=== PATIENT | female | born 1980 | race Caucasian/White ===

== ENCOUNTER 2020-01-07 08:02 | Outpatient (CLI) | payer MEDICARE, OTHER ==
[2020-01-07 16:41] LABS: BHCG - Serum Negative (NEGATIVE); Pregs Control Background? CLEAR/WHITE (CLR/WHITE); Pregs Control Bar Appear? YES (CONTROL BAR)
[2020-01-07 20:19] LABS: SARS-CoV-2 MS2 Positive; SARS-CoV-2 N Gene Negative; SARS-CoV-2 S Gene Negative; SARS-CoV-2 orf1ab Negative
== END 2020-01-07 08:03 | disposition home or self-care (01) ==
LOC: LABBT 08:02
PROVIDERS: ATTEND Otolaryngology Plastic Surgery within the Head & Neck
DX: Z01.812 Encounter for preprocedural laboratory examination (principal); Z11.59 Encounter for screening for other viral diseases; J32.9 Chronic sinusitis, unspecified; J35.2 Hypertrophy of adenoids; J34.3 Hypertrophy of nasal turbinates; J34.2 Deviated nasal septum; J35.1 Hypertrophy of tonsils; R09.82 Postnasal drip; R05 Cough; R06.83 Snoring; G47.33 Obstructive sleep apnea (adult) (pediatric)
CPT/HCPCS: 84703; 85014; U0003; 87635

== ENCOUNTER 2020-01-09 06:03 | Day surgery (SDC) | payer MEDICARE ==
[2020-01-03 10:28] VITALS: BMI 35.5
[2020-01-09] MEDS ORDERED: AFRIN NASAL MIST 15 ML BOT ONE ×2 (06:18→06:40)
[2020-01-09] MEDS ORDERED: Bacitracin Zinc Ointment 30 gm TUBE ONE (06:40)
[2020-01-09] MEDS ORDERED: Ferric Subsulfate (ASTRINGYN) 8 ML VIAL ONE (06:40)
[2020-01-09] MEDS ORDERED: Lidocaine 1% w/Epinephrine 1:100K 20 ML VIAL ONE (06:40)
[2020-01-09] MEDS ORDERED: Fentanyl 250 MCG/5 ML VIAL ONE (06:50)
[2020-01-09] MEDS ORDERED: Acetaminophen 500 MG TAB ONE (06:55)
[2020-01-09] MEDS ORDERED: Midazolam HCl 2 mg/2 ml Vial ONE (06:56)
[2020-01-09] MEDS ORDERED: Lidocaine 4% Topical Sol 50 ML BOT ONE (07:01)
[2020-01-09] MEDS ORDERED: Fentanyl 100 MCG/2 ML VIAL ONE ×2 (08:50→09:21)
[2020-01-09] MEDS ORDERED: Labetalol HCl 100 MG/20 ML VIAL ONE (09:25)
[2020-01-09] MEDS ORDERED: Rocuronium Bromide 10 MG/ML (10ML VIAL) ONE (10:19)
[2020-01-09] MEDS ORDERED: Dexamethasone 20 MG/5 ML VIAL ONE (10:19)
[2020-01-09] MEDS ORDERED: PHENYLEPHRINE-NS 100 MCG/ML 10 ML SYRINGE ONE (10:19)
[2020-01-09] MEDS ORDERED: Succinylcholine Chloride 20 MG/ML 10 ml SYRINGE FS ONE (10:19)
[2020-01-09] MEDS ORDERED: Lidocaine 1% PF 5 ML VIAL ONE (10:19)
[2020-01-09] MEDS ORDERED: Ondansetron PF 4 MG/2 ML Vial ONE (10:19)
[2020-01-09] MEDS ORDERED: PROPOFOL 200 MG/20 ML VIAL ONE (10:19)
[2020-01-09] MEDS ORDERED: Hydrocodone-Acetamin 15 ML UDCUP ONE (10:23)
[2020-01-09] MEDS ORDERED: Morphine 2 MG/ML SYRINGE ONE (11:17)
--- NOTE | 2020-01-10 14:18 | OP ---
DATE OF PROCEDURE: 01/09/2020 PREOPERATIVE DIAGNOSES: 1. Chronic rhinosinusitis. 2. Bilateral inferior turbinate hypertrophy. 3. Nasal obstruction. 4. Chronic adenotonsillitis. 5. Adenotonsillar hypertrophy. 6. Obstructive sleep apnea. POSTOPERATIVE DIAGNOSES: 1. Chronic rhinosinusitis. 2. Bilateral inferior turbinate hypertrophy. 3. Nasal obstruction. 4. Chronic adenotonsillitis. 5. Adenotonsillar hypertrophy. 6. Obstructive sleep apnea. PROCEDURES PERFORMED: 1. Bilateral endoscopic sinus surgery, total ethmoidectomy with sphenoidotomies including removal of tissue. 2. Bilateral endoscopic sinus surgery, frontal sinus exploration. 3. Bilateral endoscopic sinus surgery, maxillary antrostomies. 4. Bilateral inferior turbinate submucosal resection. 5. Tonsillectomy and adenoidectomy. 6. LandmarX stereotactic image-guided sinus procedure. ESTIMATED BLOOD LOSS: 20 mL. COMPLICATIONS: None. ANESTHESIA: GETA. DESCRIPTION OF PROCEDURE: Following this, 1% lidocaine with 1:100,000 epinephrine were injected into the middle turbinates and lateral nasal wall bilaterally. Following this, the 0-degree endoscope was used to visualize the middle turbinate and the middle turbinate was medially fractured using a Redway elevator. Following this, the uncinate process was identified and was examined. The uncinate process was noted to be inflamed and laterally displaced bilaterally. Following this, a ball-ended probe was used to anteriorly fracture the uncinate process bilaterally. Following this, the 0-degree microdebrider and the up-biting Blakesley forceps were used to remove the uncinate process bilaterally. Following this, the natural maxillary sinus ostia was identified with the 0-degree endoscope and the ball-ended probe. The natural maxillary ostia was then widened using a 40-degree microdebrider and the straight Blakesley forceps bilaterally. Following this, the ethmoidal bulla was identified bilaterally. A 0-degree microdebrider was used to puncture the ethmoidal bulla on its medial and inferior aspect bilaterally. Following this, the 0-degree microdebrider and the up-biting Blakesley forceps were used to remove the ethmoidal bulla. Following this, the grand lamella was identified posterior to this area and was punctured using the 0-degree microdebrider bilaterally. Following this, the ethmoidal cells were opened from the posterior to the anterior using the 0-degree microdebrider, the 40-degree microdebrider and the up-biting Blakesley forceps bilaterally. Following this, the 45-degree endoscope and the 40-degree microdebrider blade were used to further remove the anterior ethmoidal cells to the level of the frontal sinus recess bilaterally. Following this, a 0-degree endoscope was advanced to the anterior wall of the sphenoid sinus through the previous ethmoidectomies and the Shepard tip suction was used to create a sphenoidotomy into the sphenoid sinuses bilaterally. Following this, the microdebrider was used to remove bone tissue and nasal polyps obstructing this posterior ethmoidal area and sphenoid sinus ostia area with the microdebrider. Following this, the microdebrider was used to widen the sphenoidotomy medially and inferiorly. Following this, 45-degree endoscope was used to visualize the anterior ethmoidal cells and a 40-degree microdebrider blade was used to further open the frontal sinus ostia and frontal sinus recess bilaterally. Following this, the inferior turbinates were punctured on the anterior-inferior aspect and submucosal resection was performed of the anterior and inferior aspect of the inferior turbinates bilaterally. Following this, inferior turbinates were laterally outfractured with a Redway elevator. Following this, nasal cavity was irrigated. NasoPore packing was placed within the middle meatus bilaterally. Prior to this sinus procedure, the [employer] image-guided system was setup, calibrated, and was noted to be within 1 mm of accuracy. All instruments used inside the nose were under stereotactic navigation guidance. General endotracheal anesthesia and intravenous access were obtained and we proceeded with positioning the patient for oropharyngeal surgery. Oropharyngeal exposure was obtained with a Kenyatta-Adolfo mouth gag after a head drape was placed and secured with a towel clip. The Kenyatta-Adolfo mouth gag was then suspended from the Castaneda tray and palatal elevation was achieved with a red rubber catheter. The right tonsil was addressed first. We used a curved Allis to grasp the tonsil and retract it medially as an anterior pillar incision was made. The retrotonsillar fascial plane was then established and blunt dissection was performed with the suction cautery. Blood vessels were anticipated, identified, and cauterized as they were encountered. Ultimately, dissection was carried to the posterior tonsillar pillar mucosa which was incised hemostatically, as well as the base of tongue connection. The tonsil was then passed off as a specimen and bleeding points within the tonsillar bed were cauterized under direct visualization. We subsequently turned our attention to the contralateral side, where using a similar technique, a near identical procedure was performed. Again, the tonsil was grasped and retracted medially with a curved Allis. The retrotonsillar fascial plane was established and while the anterior pillar was retracted medially. The hemostatic blunt dissection of the tonsil with a suction cautery was performed with blood vessels anticipated, identified, and cauterized as they were encountered. Again, dissection continued to the base of tongue and posterior tonsillar pillar mucosa which was incised in a hemostatic fashion. The tonsillar beds were then carefully inspected and bleeding points were identified and cauterized with a suction cautery. After this portion of the procedure, hemostasis was completely obtained. Under direct mirror visualization, we visualized the adenoid pad. Under direct mirror visualization, we removed the bulk of the adenoid tissue with the adenoid curette. We then packed the nasopharynx for an appropriate period of time with [id number] tonsillar sponges. After a period of observation, we removed the pack. Under indirect mirror visualization, we obtained hemostasis and vaporization of residual adenoid tissue with electrocautery. The patient's oral cavity was copiously irrigated with iced saline and subsequently suctioned. After completion of the procedure, the nasal cavity and oropharynx were irrigated and suctioned as were the gastric contents. Following this, the excessive portion of the uvula was excised with the Bovie electrocautery and the mucosal edges were reapproximated with 3-0 chromic gut stitch. The patient tolerated the procedure well. Job ID: [id number]
== END 2020-01-09 12:40 | disposition home or self-care (01) ==
LOC: SDC 06:03
PROVIDERS: ATTEND Otolaryngology Plastic Surgery within the Head & Neck
PROC: 0CTPXZZ Resection of Tonsils, External Approach (ICD-10-PCS; principal; 2020-01-09)
PROC: 0CTQXZZ Resection of Adenoids, External Approach (ICD-10-PCS; 2020-01-09)
PROC: 8E09XBZ Computer Assisted Procedure of Head and Neck Region (ICD-10-PCS; 2020-01-09)
PROC: 099T8ZZ Drainage of Left Frontal Sinus, Via Natural or Artificial Opening Endoscopic (ICD-10-PCS; 2020-01-09)
PROC: 099Q8ZZ Drainage of Right Maxillary Sinus, Via Natural or Artificial Opening Endoscopic (ICD-10-PCS; 2020-01-09)
PROC: 099R8ZZ Drainage of Left Maxillary Sinus, Via Natural or Artificial Opening Endoscopic (ICD-10-PCS; 2020-01-09)
PROC: 099S8ZZ Drainage of Right Frontal Sinus, Via Natural or Artificial Opening Endoscopic (ICD-10-PCS; 2020-01-09)
PROC: 09TL8ZZ Resection of Nasal Turbinate, Via Natural or Artificial Opening Endoscopic (ICD-10-PCS; 2020-01-09)
PROC: 09BX8ZZ Excision of Left Sphenoid Sinus, Via Natural or Artificial Opening Endoscopic (ICD-10-PCS; 2020-01-09)
PROC: 09BW8ZZ Excision of Right Sphenoid Sinus, Via Natural or Artificial Opening Endoscopic (ICD-10-PCS; 2020-01-09)
PROC: 09TV8ZZ Resection of Left Ethmoid Sinus, Via Natural or Artificial Opening Endoscopic (ICD-10-PCS; 2020-01-09)
PROC: 09TU8ZZ Resection of Right Ethmoid Sinus, Via Natural or Artificial Opening Endoscopic (ICD-10-PCS; 2020-01-09)
DX: J32.9 Chronic sinusitis, unspecified (principal); J34.2 Deviated nasal septum; J34.3 Hypertrophy of nasal turbinates; J35.03 Chronic tonsillitis and adenoiditis; G47.33 Obstructive sleep apnea (adult) (pediatric); J33.9 Nasal polyp, unspecified; J34.89 Other specified disorders of nose and nasal sinuses; J45.909 Unspecified asthma, uncomplicated; G43.909 Migraine, unspecified, not intractable, without status migrainosus; E03.9 Hypothyroidism, unspecified; F41.9 Anxiety disorder, unspecified; F31.9 Bipolar disorder, unspecified; F20.9 Schizophrenia, unspecified; F43.10 Post-traumatic stress disorder, unspecified; Z79.899 Other long term (current) drug therapy; Z88.0 Allergy status to penicillin; Z87.891 Personal history of nicotine dependence
CPT/HCPCS: 88304; J1100; J2001; J2250; J2270; J2405; J2704; J3010